=== PATIENT | male | born 1965 | race Caucasian/White ===

== ENCOUNTER 2022-07-05 17:16 | Inpatient (IN) | payer OTHER ==
[~2022-07-05] VITALS: Ht 177.8 cm; Wt 88.5 kg
[2022-07-05] MEDS ORDERED: ASPI-1444 PO (18:22)
[2022-07-05] MEDS ORDERED: ATOR40TA28 PO (18:22)
[2022-07-05] MEDS ORDERED: AMLO-258 PO (18:22)
[2022-07-05] MEDS ORDERED: CLOP75TA60 PO (18:22)
[2022-07-05] MEDS ORDERED: DULO-114 PO (18:22)
[2022-07-05] MEDS ORDERED: NITR0.4T52 SL (18:22)
[2022-07-05] MEDS ORDERED: BARIUM SULFATE 0.1% SUSPENSION 450 ML BOTTLE PO ONE (19:00)
[2022-07-05] MEDS ORDERED: SODIUM CHLORIDE 0.9% 1,000 ML IV ONE (19:00)
[2022-07-05] MEDS ORDERED: ONDANSETRON HCL 4 MG/2 ML VIAL IVP ONE (19:00)
[2022-07-05 20:25] LABS: ANION GAP 5 mmol/L (8-16); CALCIUM, TOTAL 9.5 mg/dL (8.8-10.5); CARBON DIOXIDE 30 mmol/L (22-29); CHLORIDE 101 mmol/L (98-107); CREATININE 1.19 mg/dL (0.60-1.30); GLUCOSE,RANDOM 89 mg/dL (70-110); POTASSIUM 4.5 mmol/L (3.5-5.1); SODIUM SERUM 136 mmol/L (136-145); UREA NITROGEN, BLOOD 23 mg/dL (7-18)
[2022-07-05 20:26] LABS: GLOMERULAR FILTR. RATE CALC > 60 mL/min (>60)
[2022-07-05 20:29] LABS: HEMATOCRIT 45.1 % (41-53); HEMOGLOBIN 15.5 g/dL (13.5-17.5); LYMPHOCYTES # (AUTO) 1.6 K/uL (1.0-4.8); LYMPHOCYTES % (AUTO) 19.3 % (22.0-44.0); MEAN CORPUSCULAR HEMOGLOBIN 28.5 pg (26.0-34.0); MEAN CORPUSCULAR HGB CONC 34.3 G/dL (31.0-37.0); MEAN CORPUSCULAR VOLUME 83 fL (80-100); MONOCYTES # (AUTO) 0.7 K/uL (0.1-1.0); MONOCYTES % (AUTO) 8.4 % (2.0-9.0); NEUTROPHILS # (AUTO) 5.6 K/uL (1.8-7.7); NEUTROPHILS % (AUTO) 69.3 % (40.0-70.0); PLATELET COUNT (AUTO) 277 K/uL (150-450); RED BLOOD CELL COUNT(AUTO) 5.43 MIL/uL (4.50-5.90); RED CELL DISTRIBUTION WIDTH 13.6 % (11.5-14.5)
[2022-07-05 20:31] LABS: ALANINE AMINOTRANSFERASE 13 U/L (12-78); ALBUMIN 3.9 g/dL (3.4-5.0); ALKALINE PHOSPHATASE 98 U/L (46-116); ASPARTATE AMINOTRANSFERASE 13 U/L (15-37); BILIRUBIN,TOTAL 0.8 mg/dL (0.1-1.0); LIPASE 107 U/L (73-393); TOTAL PROTEIN, SERUM 7.9 g/dL (6.4-8.2)
[2022-07-05] MEDS ORDERED: SODIUM CHLORIDE 0.9% 100 ML ONE (20:43)
[2022-07-05] MEDS ORDERED: IOHEXOL 300 MG/ML 100 ML VIAL ONE (20:43)
[2022-07-05] MEDS ORDERED: ZOLPIDEM TARTRATE 5 MG TABLET PO PRN (20:45)
[2022-07-05] MEDS ORDERED: MORPHINE SULFATE 2 MG/ML SYRINGE IVP PRN (20:45)
[2022-07-05] MEDS ORDERED: MAGNESIUM HYDROXIDE SUSPENSION 30 ML UDCUP PO PRN (20:45)
[2022-07-05] MEDS ORDERED: BISACODYL 5 MG EC TABLET PO PRN (20:45)
[2022-07-05] MEDS ORDERED: ONDANSETRON HCL 4 MG/2 ML VIAL IVP PRN (20:45)
[2022-07-05] MEDS ORDERED: BISACODYL 10 MG RECTAL RECTAL SUPPOSITORY PR PRN (20:45)
[2022-07-05] MEDS ORDERED: MINERAL OIL 133 ML ENEMA PR ONE (20:45)
[2022-07-05] MEDS ORDERED: HYDROCODONE/ACETAMINOPHEN 5-325 MG TABLET PO PRN (20:45)
[2022-07-05] MEDS ORDERED: ACETAMINOPHEN 325 MG TABLET PO PRN (20:45)
[2022-07-05 20:48] LABS: LACTIC ACID 1.3 mmol/L (0.4-2.0)
[2022-07-05 20:51] LABS: B-TYPE NATRIURETIC PEPTIDE 19 pg/mL (0-100)
[2022-07-05] MEDS: DOCUSATE SODIUM 100 MG CAPSULE PO SCH (22:45)
[2022-07-05 23:31] VITALS: BP 125/82
[2022-07-05] MEDS: HEPARIN SODIUM,PORCINE 5,000 UNITS/ML VIAL SQ SCH (23:42)
[2022-07-06 05:38] VITALS: BP 131/77
[2022-07-06 05:57] LABS: APPEARANCE,URINE CLEAR (CLEAR); BILIRUBIN,URINE NEGATIVE (NEGATIVE); GLUCOSE, URINE (UA) NEGATIVE (NEGATIVE); LEUKOCYTE ESTERASE ,URINE NEGATIVE (NEGATIVE); NITRATE,URINE NEGATIVE (NEGATIVE); OCCULT BLOOD,URINE NEGATIVE (NEGATIVE); PROTEIN,URINE NEGATIVE (NEGATIVE); SPECIFIC GRAVITIY, URINE 1.039 (1.003-1.030)
[2022-07-06 06:18] LABS: BACTERIA,URINE None Seen /HPF (None Seen); RBC,URINE None Seen /HPF (0-2); WBC,URINE None Seen /HPF (0-5)
[2022-07-06 08:15] LABS: BASOPHILS % (AUTO) 1.1 % (0.0-2.0); EOSINOPHILS % (AUTO) 4.1 % (1.0-6.0); HEMATOCRIT 43.6 % (41-53); LYMPHOCYTES # (AUTO) 1.9 K/uL (1.0-4.8); LYMPHOCYTES % (AUTO) 24.3 % (22.0-44.0); MEAN CORPUSCULAR HEMOGLOBIN 28.7 pg (26.0-34.0); MEAN CORPUSCULAR HGB CONC 34.4 G/dL (31.0-37.0); MEAN CORPUSCULAR VOLUME 83 fL (80-100); MONOCYTES % (AUTO) 12.1 % (2.0-9.0); NEUTROPHILS # (AUTO) 4.6 K/uL (1.8-7.7); NEUTROPHILS % (AUTO) 58.4 % (40.0-70.0); PLATELET COUNT (AUTO) 248 K/uL (150-450); RED BLOOD CELL COUNT(AUTO) 5.23 MIL/uL (4.50-5.90); RED CELL DISTRIBUTION WIDTH 13.5 % (11.5-14.5)
[2022-07-06 08:22] VITALS: BP 119/75
[2022-07-06] MEDS ORDERED: PANTOPRAZOLE SODIUM 40 MG DR TABLET PO SCH (09:00)
[2022-07-06] MEDS: CLOPIDOGREL BISULFATE 75 MG TABLET PO SCH (09:13)
[2022-07-06] MEDS: DOCUSATE SODIUM 100 MG CAPSULE PO SCH ×2 (09:13→20:08)
[2022-07-06 09:14] LABS: ANION GAP 7 mmol/L (8-16); CALCIUM, TOTAL 9.2 mg/dL (8.8-10.5); CARBON DIOXIDE 26 mmol/L (22-29); CHLORIDE 103 mmol/L (98-107); CREATININE 0.91 mg/dL (0.60-1.30); GLUCOSE,RANDOM 85 mg/dL (70-110); POTASSIUM 3.7 mmol/L (3.5-5.1); SODIUM SERUM 136 mmol/L (136-145); UREA NITROGEN, BLOOD 21 mg/dL (7-18)
[2022-07-06] MEDS: ATORVASTATIN CALCIUM 40 MG TABLET PO SCH (09:14)
[2022-07-06] MEDS: HEPARIN SODIUM,PORCINE 5,000 UNITS/ML VIAL SQ SCH (09:14)
[2022-07-06] MEDS: AmLODIPine BESYLATE 10 MG TABLET PO SCH (09:14)
[2022-07-06] MEDS: ASPIRIN 81 MG DR TABLET PO SCH (09:14)
[2022-07-06] MEDS: DULoxetine HCL 30 MG CAPSULE PO SCH (09:14)
[2022-07-06 09:17] LABS: GLOMERULAR FILTR. RATE CALC > 60 mL/min (>60)
[2022-07-06 15:37] VITALS: BP 114/81
[2022-07-06] MEDS: PANTOPRAZOLE SODIUM 40 MG/VIAL IVP SCH (20:08)
[2022-07-06 20:31] VITALS: BP 124/77
[2022-07-07 04:35] VITALS: BP 107/76
[2022-07-07 07:52] VITALS: BP 118/75
[2022-07-07] MEDS: ATORVASTATIN CALCIUM 40 MG TABLET PO SCH (08:27)
[2022-07-07] MEDS: PANTOPRAZOLE SODIUM 40 MG/VIAL IVP SCH ×2 (08:27→20:50)
[2022-07-07] MEDS: AmLODIPine BESYLATE 10 MG TABLET PO SCH (08:27)
[2022-07-07] MEDS: CLOPIDOGREL BISULFATE 75 MG TABLET PO SCH (08:27)
[2022-07-07] MEDS: DOCUSATE SODIUM 100 MG CAPSULE PO SCH ×2 (08:27→20:51)
[2022-07-07] MEDS: ASPIRIN 81 MG DR TABLET PO SCH (08:27)
[2022-07-07] MEDS: DULoxetine HCL 30 MG CAPSULE PO SCH (08:33)
[2022-07-07 08:58] LABS: BASOPHILS % (AUTO) 1.1 % (0.0-2.0); EOSINOPHILS % (AUTO) 4.1 % (1.0-6.0); HEMATOCRIT 41.1 % (41-53); HEMOGLOBIN 14.5 g/dL (13.5-17.5); LYMPHOCYTES # (AUTO) 1.2 K/uL (1.0-4.8); LYMPHOCYTES % (AUTO) 17.8 % (22.0-44.0); MEAN CORPUSCULAR HEMOGLOBIN 28.7 pg (26.0-34.0); MEAN CORPUSCULAR HGB CONC 35.1 G/dL (31.0-37.0); MEAN CORPUSCULAR VOLUME 82 fL (80-100); MONOCYTES # (AUTO) 0.5 K/uL (0.1-1.0); NEUTROPHILS # (AUTO) 4.7 K/uL (1.8-7.7); PLATELET COUNT (AUTO) 267 K/uL (150-450); RED BLOOD CELL COUNT(AUTO) 5.04 MIL/uL (4.50-5.90); RED CELL DISTRIBUTION WIDTH 13.7 % (11.5-14.5)
[2022-07-07] MEDS ORDERED: PANTOPRAZOLE SODIUM 40 MG/VIAL IVP SCH (09:00)
[2022-07-07 09:10] LABS: ANION GAP 7 mmol/L (8-16); CALCIUM, TOTAL 8.7 mg/dL (8.8-10.5); CARBON DIOXIDE 27 mmol/L (22-29); CHLORIDE 103 mmol/L (98-107); CREATININE 1.13 mg/dL (0.60-1.30); GLUCOSE,RANDOM 181 mg/dL (70-110); POTASSIUM 3.7 mmol/L (3.5-5.1); SODIUM SERUM 137 mmol/L (136-145); UREA NITROGEN, BLOOD 20 mg/dL (7-18)
[2022-07-07 09:11] LABS: GLOMERULAR FILTR. RATE CALC > 60 mL/min (>60)
[2022-07-07 15:31] VITALS: BP 133/74
[2022-07-07 20:10] VITALS: BP 127/77
[2022-07-08 05:02] VITALS: BP 130/84
[2022-07-08 07:56] VITALS: BP 133/86
[2022-07-08] MEDS: PANTOPRAZOLE SODIUM 40 MG/VIAL IVP SCH (08:25)
[2022-07-08] MEDS: DULoxetine HCL 30 MG CAPSULE PO SCH (08:27)
[2022-07-08] MEDS: ATORVASTATIN CALCIUM 40 MG TABLET PO SCH (08:28)
[2022-07-08] MEDS: CLOPIDOGREL BISULFATE 75 MG TABLET PO SCH (08:28)
[2022-07-08] MEDS: ASPIRIN 81 MG DR TABLET PO SCH (08:28)
[2022-07-08] MEDS: DOCUSATE SODIUM 100 MG CAPSULE PO SCH (08:28)
[2022-07-08] MEDS: AmLODIPine BESYLATE 10 MG TABLET PO SCH (08:28)
[2022-07-08 08:44] LABS: BASOPHILS % (AUTO) 1.2 % (0.0-2.0); EOSINOPHILS % (AUTO) 4.6 % (1.0-6.0); HEMOGLOBIN 14.1 g/dL (13.5-17.5); LYMPHOCYTES # (AUTO) 1.5 K/uL (1.0-4.8); LYMPHOCYTES % (AUTO) 20.8 % (22.0-44.0); MEAN CORPUSCULAR HEMOGLOBIN 28.2 pg (26.0-34.0); MEAN CORPUSCULAR HGB CONC 34.4 G/dL (31.0-37.0); MEAN CORPUSCULAR VOLUME 82 fL (80-100); MONOCYTES # (AUTO) 0.7 K/uL (0.1-1.0); MONOCYTES % (AUTO) 9.9 % (2.0-9.0); NEUTROPHILS # (AUTO) 4.5 K/uL (1.8-7.7); NEUTROPHILS % (AUTO) 63.5 % (40.0-70.0); PLATELET COUNT (AUTO) 251 K/uL (150-450); RED CELL DISTRIBUTION WIDTH 13.8 % (11.5-14.5)
[2022-07-08 08:51] LABS: ANION GAP 6 mmol/L (8-16); CALCIUM, TOTAL 8.7 mg/dL (8.8-10.5); CARBON DIOXIDE 27 mmol/L (22-29); CHLORIDE 103 mmol/L (98-107); CREATININE 1.09 mg/dL (0.60-1.30); GLUCOSE,RANDOM 151 mg/dL (70-110); POTASSIUM 3.6 mmol/L (3.5-5.1); SODIUM SERUM 136 mmol/L (136-145); UREA NITROGEN, BLOOD 21 mg/dL (7-18)
[2022-07-08 08:56] LABS: GLOMERULAR FILTR. RATE CALC > 60 mL/min (>60)
[2022-07-08] MEDS ORDERED: DOCU-385 PO (12:37)
[2022-07-08] MEDS ORDERED: ACET-2247 PO (12:38)
[2022-07-08] MEDS ORDERED: PANT-31 PO (12:38)
[2022-07-08] MEDS ORDERED: MAGN-169 PO (12:39)
[2022-07-08 15:27] VITALS: BP 119/76
[2022-07-09] MEDS ORDERED: PANTOPRAZOLE SODIUM 40 MG DR TABLET PO SCH (09:00)
== END 2022-07-08 15:40 | DRG 392 ==
LOC: EMS 17:25 → 6S 22:31
PROVIDERS: ADMIT Internal Medicine; ATTEND Internal Medicine
DX: K52.9 Noninfective gastroenteritis and colitis, unspecified (principal); K56.7 Ileus, unspecified; E78.5 Hyperlipidemia, unspecified; I10 Essential (primary) hypertension; I25.10 Atherosclerotic heart disease of native coronary artery without angina pectoris; I25.2 Old myocardial infarction; Z79.82 Long term (current) use of aspirin; Z86.73 Personal history of transient ischemic attack (TIA), and cerebral infarction without residual deficits; Z95.1 Presence of aortocoronary bypass graft; Z79.899 Other long term (current) drug therapy
CPT/HCPCS: 71045; 74019; 74177; 80048; 80053; 81001; 83605; 83690; 83880; 84484; 85025; 93005; 99285; C9113; J1644; J2405; J7050; Q9967; 36415-L1; 36415-TC

== ENCOUNTER 2023-06-10 16:28 | Emergency (ER) | payer OTHER ==
[~2023-06-10] VITALS: Ht 175.3 cm; Wt 95.5 kg
[~2023-06-10 16:28] MED LIST: ACET-2247 PO; AMLO-258 PO; ASPI-1444 PO; ATOR40TA28 PO; CLOP75TA60 PO; DOCU-385 PO; DULO-114 PO; MAGN-169 PO; PANT-31 PO
[2023-06-10 18:07] VITALS: BP 150/96; PULSE 81; RESP 18; TEMP 98
[2023-06-10 18:38] LABS: BASOPHILS % (AUTO) 1.1 % (0.0-2.0); EOSINOPHILS % (AUTO) 3.1 % (1.0-6.0); HEMATOCRIT 35.6 % (41-53); HEMOGLOBIN 11.6 g/dL (13.5-17.5); LYMPHOCYTES # (AUTO) 1.4 K/uL (1.0-4.8); LYMPHOCYTES % (AUTO) 19.6 % (22.0-44.0); MEAN CORPUSCULAR HEMOGLOBIN 24.6 pg (26.0-34.0); MEAN CORPUSCULAR HGB CONC 32.4 G/dL (31.0-37.0); MEAN CORPUSCULAR VOLUME 76 fL (80-100); MONOCYTES # (AUTO) 0.9 K/uL (0.1-1.0); MONOCYTES % (AUTO) 12.6 % (2.0-9.0); NEUTROPHILS # (AUTO) 4.7 K/uL (1.8-7.7); NEUTROPHILS % (AUTO) 63.6 % (40.0-70.0); PLATELET COUNT (AUTO) 301 K/uL (150-450); RED BLOOD CELL COUNT(AUTO) 4.69 MIL/uL (4.50-5.90); RED CELL DISTRIBUTION WIDTH 18.6 % (11.5-14.5); WHITE BLOOD COUNT (AUTO) 7.4 K/uL (4.5-11.0)
[2023-06-10 18:41] LABS: ANION GAP 12 mmol/L (8-16); CARBON DIOXIDE 27 mmol/L (22-29); CHLORIDE 100 mmol/L (98-107); CREATININE 1.01 mg/dL (0.60-1.30); GLOMERULAR FILTR. RATE CALC > 60 mL/min (>60); GLUCOSE,RANDOM 91 mg/dL (70-110); POTASSIUM 4.5 mmol/L (3.5-5.1); SODIUM SERUM 139 mmol/L (136-145); UREA NITROGEN, BLOOD 27 mg/dL (7-18)
[2023-06-10 18:56] LABS: ALANINE AMINOTRANSFERASE 25 U/L (12-78); ALBUMIN 4.2 g/dL (3.4-5.0); ALKALINE PHOSPHATASE 115 U/L (46-116); ASPARTATE AMINOTRANSFERASE 24 U/L (15-37); BILIRUBIN,TOTAL 0.5 mg/dL (0.1-1.0); CHOL/HDL RATIO 2.6 (4.2-7.3); CHOLESTEROL 136 mg/dL (131-200); HDL CHOLESTEROL 52 mg/dL (40-60); LDL CHOL (CALC.) 71 mg/dL (0-130); THYROID STIMULATING HORMONE 0.91 uIU/mL (0.36-3.74); TOTAL PROTEIN, SERUM 8.9 g/dL (6.4-8.2); TRIGLYCERIDES 66 mg/dL (15-150)
[2023-06-10 19:00] LABS: HEMOGLOBIN A1C 6.2 % (3.8-5.6)
== END 2023-06-10 20:31 ==
LOC: EMS 16:29
DX: I10 Essential (primary) hypertension; Z98.890 Other specified postprocedural states
CPT/HCPCS: 80053; 80061; 83036; 84153; 84443; 85025; 99283

== ENCOUNTER 2024-03-15 09:03 | Emergency (ER) | payer OTHER ==
[~2024-03-15] VITALS: Ht 175.3 cm; Wt 95.5 kg
[2024-03-15 09:27] VITALS: TEMP 98.6
[2024-03-15 10:12] LABS: BASOPHILS % (AUTO) 1.1 % (0.0-2.0); EOSINOPHILS % (AUTO) 5.1 % (1.0-6.0); HEMATOCRIT 42.2 % (41-53); HEMOGLOBIN 14.5 g/dL (13.5-17.5); LYMPHOCYTES # (AUTO) 1.9 K/uL (1.0-4.8); LYMPHOCYTES % (AUTO) 30.4 % (22.0-44.0); MEAN CORPUSCULAR HEMOGLOBIN 30.8 pg (26.0-34.0); MEAN CORPUSCULAR HGB CONC 34.3 G/dL (31.0-37.0); MEAN CORPUSCULAR VOLUME 90 fL (80-100); MONOCYTES # (AUTO) 0.7 K/uL (0.1-1.0); NEUTROPHILS # (AUTO) 3.2 K/uL (1.8-7.7); NEUTROPHILS % (AUTO) 52.4 % (40.0-70.0); PLATELET COUNT (AUTO) 236 K/uL (150-450); RED CELL DISTRIBUTION WIDTH 13.8 % (11.5-14.5); WHITE BLOOD COUNT (AUTO) 6.2 K/uL (4.5-11.0)
[2024-03-15 10:19] LABS: ANION GAP 7 mmol/L (8-16); CARBON DIOXIDE 27 mmol/L (22-29); CHLORIDE 103 mmol/L (98-107); CREATININE 1.02 mg/dL (0.60-1.30); GLUCOSE,RANDOM 146 mg/dL (70-110); POTASSIUM 3.4 mmol/L (3.5-5.1); SODIUM SERUM 137 mmol/L (136-145); UREA NITROGEN, BLOOD 19 mg/dL (7-18)
[2024-03-15 10:20] LABS: CALCIUM, TOTAL 8.9 mg/dL (8.8-10.5); GLOMERULAR FILTR. RATE CALC > 60 mL/min (>60)
[2024-03-15 10:25] LABS: % IRON SATURATION 58.8 % (30-44); HEMOGLOBIN A1C 6.1 % (3.8-5.6); IRON, SERUM 139 mcg/dL (50-175); TOTAL IRON BINDING CAPACITY 236 mcg/dL (250-450)
[2024-03-15 10:34] LABS: CHOL/HDL RATIO 2.7 (4.2-7.3); CHOLESTEROL 109 mg/dL (131-200); FREE T4 (FREE THYROXINE) 0.92 ng/dL (0.76-1.46); HDL CHOLESTEROL 41 mg/dL (40-60); LDL CHOL (CALC.) 31 mg/dL (0-130); T4 (THYROXINE) 5.3 mcg/dL (4.7-13.3); THYROID STIMULATING HORMONE 1.82 uIU/mL (0.36-3.74); TRIGLYCERIDES 185 mg/dL (15-150)
[2024-03-15 10:59] VITALS: BP 148/81; PULSE 80; RESP 16
== END 2024-03-15 11:00 ==
LOC: EMS 09:03
DX: Z01.812 Encounter for preprocedural laboratory examination (principal); I10 Essential (primary) hypertension; Z79.899 Other long term (current) drug therapy
CPT/HCPCS: 80048; 80061; 82306; 83036; 83540; 83550; 83695; 84436; 84439; 84443; 84481; 85025; 99283

== ENCOUNTER 2024-06-12 11:26 | Emergency (ER) | payer OTHER ==
[~2024-06-12] VITALS: Ht 180.3 cm; Wt 90.0 kg
[2024-06-12 12:52] VITALS: TEMP 98.1
[2024-06-12 13:18] LABS: BASOPHILS % (AUTO) 0.9 % (0.0-2.0); EOSINOPHILS % (AUTO) 5.5 % (1.0-6.0); HEMATOCRIT 43.4 % (41-53); LYMPHOCYTES # (AUTO) 1.9 K/uL (1.0-4.8); LYMPHOCYTES % (AUTO) 30.1 % (22.0-44.0); MEAN CORPUSCULAR HEMOGLOBIN 30.9 pg (26.0-34.0); MEAN CORPUSCULAR HGB CONC 34.6 G/dL (31.0-37.0); MEAN CORPUSCULAR VOLUME 89 fL (80-100); MONOCYTES # (AUTO) 0.8 K/uL (0.1-1.0); MONOCYTES % (AUTO) 13.3 % (2.0-9.0); NEUTROPHILS # (AUTO) 3.1 K/uL (1.8-7.7); NEUTROPHILS % (AUTO) 50.2 % (40.0-70.0); PLATELET COUNT (AUTO) 243 K/uL (150-450); RED BLOOD CELL COUNT(AUTO) 4.86 MIL/uL (4.50-5.90); RED CELL DISTRIBUTION WIDTH 13.6 % (11.5-14.5); WHITE BLOOD COUNT (AUTO) 6.2 K/uL (4.5-11.0)
[2024-06-12 13:27] LABS: ANION GAP 10 mmol/L (8-16); CALCIUM, TOTAL 8.3 mg/dL (8.8-10.5); CARBON DIOXIDE 25 mmol/L (22-29); CHLORIDE 102 mmol/L (98-107); CREATININE 1.04 mg/dL (0.60-1.30); GLOMERULAR FILTR. RATE CALC > 60 mL/min (>60); GLUCOSE,RANDOM 99 mg/dL (70-110); POTASSIUM 3.5 mmol/L (3.5-5.1); SODIUM SERUM 137 mmol/L (136-145); UREA NITROGEN, BLOOD 25 mg/dL (7-18)
[2024-06-12 13:34] LABS: ALANINE AMINOTRANSFERASE 17 U/L (12-78); ALBUMIN 3.3 g/dL (3.4-5.0); ALKALINE PHOSPHATASE 110 U/L (46-116); ASPARTATE AMINOTRANSFERASE 10 U/L (15-37); BILIRUBIN,TOTAL 0.7 mg/dL (0.1-1.0); TOTAL PROTEIN, SERUM 7.1 g/dL (6.4-8.2)
[2024-06-12 14:16] LABS: ALCOHOL, BLOOD (SERUM) < 3 mg/dL (0-10)
[2024-06-12 14:27] VITALS: BP 128/71; PULSE 69; RESP 18; O2SAT 96
[2024-06-12 14:54] LABS: PH,URINE DRUG SCREEN 5.5 (5.0-8.0)
[2024-06-12 15:04] LABS: CHOL/HDL RATIO 2.8 (4.2-7.3)
[2024-06-12 15:12] LABS: ALCOHOL, URINE DRUG SCREEN NEGATIVE (NEGATIVE); AMPHET/METH SCREEN,URINE NEGATIVE (NEGATIVE); BARBITURATE SCREEN, URINE NEGATIVE (NEGATIVE); BENZODIAZEPINES SCREEN,URINE NEGATIVE (NEGATIVE); CANNABINOID SCREEN,URINE NEGATIVE (NEGATIVE); COCAINE SCREEN,URINE NEGATIVE (NEGATIVE); METHADONE SCREEN, URINE NEGATIVE (NEGATIVE); OPIATE SCREEN,URINE NEGATIVE (NEGATIVE); PHENCYCLIDINE SCREEN,URINE NEGATIVE (NEGATIVE)
[2024-06-13 05:08] LABS: HIV 1-2 SCREEN 4TH GEN W/RFLX Non Reactive (Non Reactive)
[2024-06-13 06:06] LABS: HEPATITIS A ANTIBODY IGM Negative (Negative); HEPATITIS B CORE IGM Negative (Negative); HEPATITIS C AB (EIA) Non Reactive (Non Reactive)
== END 2024-06-12 14:28 ==
LOC: EMS 11:27
DX: R63.0 Anorexia (principal); I10 Essential (primary) hypertension; J44.9 Chronic obstructive pulmonary disease, unspecified; Z98.890 Other specified postprocedural states; Z95.1 Presence of aortocoronary bypass graft
CPT/HCPCS: 99283; 80061; 86592; 80048; 80076; 85025; 80074; 80307; 87389; 36415; G0480